=== PATIENT | female | born 1980 | race Caucasian/White ===

== ENCOUNTER → 2017-06-17 | Outpatient (CLI) | payer OTHER ==
[~2017-06-17] MED LIST: MTR600X PO; OXYC5TAB PO; PRENTAB26 PO
[2017-06-17 12:06] LABS: BASO % 0.3 %; BASO ABS # 0.02 K/uL (0-0.2); COMPLETE YES; EOS % 1.1 %; HEMATOCRIT 37.5 % (37-47); IG% 0.3 %; LYMPH % 22.8 %; LYMPH ABS # 1.71 K/uL (1.2-3.4); MEAN CELL VOLUME 92.8 fL (80-100); MEAN CORPUSCULAR HEMOGLOBIN 31.7 pg (25-34); MEAN CORPUSCULAR HGB CONC 34.1 g/dl (32-36); MEAN PLATELET VOLUME 10.5 fL (7.4-10.4); MONO % 5.2 %; NEUT % 70.3 %; PLATELET COUNT 231 K/uL (130-400); RED BLOOD COUNT 4.04 M/uL (4.2-5.4)
[2017-06-17 15:11] LABS: URINE APPEARANCE CLEAR (CLEAR); URINE BILIRUBIN NEG (NEG); URINE COLOR YELLOW; URINE NITRITE NEG (NEG); URINE PH 6.5 (4.5-7.5); URINE SPECIFIC GRAVITY 1.021 (1.000-1.030); UROBILINOGEN NEG (NEG)
[2017-06-17 15:12] LABS: MANUAL MICROSCOPIC REQUIRED? NO; REVIEW REQ? NO
[2017-06-19 22:59] LABS: CHLAMYDIA TRACH RNA*** NOT DETECTED (NOT DETECTED); GC (NEIS GONORRHOEAE)RNA** NOT DETECTED (NOT DETECTED)
== END | disposition home or self-care (01) ==
LOC: C.LAB1850 09:56
PROVIDERS: ATTEND Obstetrics & Gynecology
DX: O09.219 Supervision of pregnancy with history of pre-term labor, unspecified trimester (principal)

== ENCOUNTER → 2017-06-17 | Outpatient (CLI) | payer OTHER | END | disposition home or self-care (01) | LOC: C.PAPS 14:12 | PROVIDERS: ATTEND Obstetrics & Gynecology | DX: O09.521 Supervision of elderly multigravida, first trimester (principal); Z3A.00 Weeks of gestation of pregnancy not specified ==

== ENCOUNTER → 2017-07-15 | Outpatient (CLI) | payer OTHER ==
[2017-07-15 13:33] LABS: GTGD 50 Grams
[2017-07-16 15:32] LABS: AFP CONCENTRATION 16.7 NG/ML; AFP MULTIPLE OF MEDIAN 0.55; AFPTS GESTATIONAL AGE 15.3 WEEKS; AFPTS INSULIN DEP DIABETIC? NO; AFPTS MATERNAL WT 143 LBS; ALPHA-FETOPROTEIN RACE CAUCASIAN=W; HISTORY OF NTD NO; REPEAT SAMPLE? NO
== END | disposition home or self-care (01) ==
LOC: C.LAB1850 11:05
PROVIDERS: ATTEND Obstetrics & Gynecology
DX: O09.522 Supervision of elderly multigravida, second trimester (principal); Z3A.00 Weeks of gestation of pregnancy not specified

== ENCOUNTER → 2017-08-19 | Outpatient (CLI) | payer OTHER ==
[2017-08-19 15:07] LABS: URINE APPEARANCE CLEAR (CLEAR); URINE BILIRUBIN NEG (NEG); URINE COLOR YELLOW; URINE EPITHELIAL CELL AUTO >30 /lpf (0-5); URINE NITRITE NEG (NEG); URINE PH 5.5 (4.5-7.5); URINE SPECIFIC GRAVITY 1.015 (1.000-1.030); UROBILINOGEN NEG (NEG)
[2017-08-19 15:11] LABS: MANUAL MICROSCOPIC REQUIRED? NO; REVIEW REQ? NO
== END | disposition home or self-care (01) ==
LOC: C.LABSPEC 14:02
PROVIDERS: ATTEND Obstetrics & Gynecology
DX: O09.522 Supervision of elderly multigravida, second trimester (principal); Z3A.00 Weeks of gestation of pregnancy not specified

== ENCOUNTER → 2017-10-29 | Outpatient (CLI) | payer OTHER | END | disposition home or self-care (01) | LOC: C.LABSPEC 13:36 | PROVIDERS: ATTEND Obstetrics & Gynecology | DX: O09.523 Supervision of elderly multigravida, third trimester (principal) ==

== ENCOUNTER → 2017-11-12 | Outpatient (CLI) | payer OTHER ==
[2017-11-12 13:20] LABS: HEMATOCRIT 33.6 % (37-47); HEMOGLOBIN 11.5 g/dL (12.0-16.0)
== END | disposition home or self-care (01) ==
LOC: C.LAB1850 11:42
PROVIDERS: ATTEND Obstetrics & Gynecology
DX: O09.523 Supervision of elderly multigravida, third trimester (principal); Z29.13 Encounter for prophylactic Rho(D) immune globulin

== ENCOUNTER → 2017-12-10 | Outpatient (CLI) | payer OTHER | END | disposition home or self-care (01) | LOC: C.LABSPEC 14:10 | PROVIDERS: ATTEND Obstetrics & Gynecology | DX: O09.523 Supervision of elderly multigravida, third trimester (principal) ==

== ENCOUNTER 2017-12-22 20:35 | Outpatient (CLI) | payer OTHER ==
[~2017-12-22] VITALS: Ht 177.8 cm; Wt 70.5 kg
[2017-12-22 21:11] VITALS: Ht 177.8 cm; Wt 70.5 kg
[2017-12-22 21:30] LABS: BASO % 0.1 %; BASO ABS # 0.01 K/uL (0-0.2); EOS % 0.5 %; EOS ABS # 0.05 K/uL (0-0.5); HEMATOCRIT 30.1 % (37-47); HEMOGLOBIN 10.4 g/dL (12.0-16.0); IG# 0.05 K/uL (0.00-0.02); LYMPH ABS # 1.84 K/uL (1.2-3.4); MEAN CELL VOLUME 91.2 fL (80-100); MEAN CORPUSCULAR HEMOGLOBIN 31.5 pg (25-34); MEAN PLATELET VOLUME 10.3 fL (7.4-10.4); MONO % 4.8 %; MONO ABS # 0.46 K/uL (0.11-0.59); NEUT % 75.1 %; NEUT ABS # 7.27 K/uL (1.4-6.5); PLATELET COUNT 201 K/uL (130-400); WHITE BLOOD COUNT 9.68 K/uL (4.8-10.8)
[2017-12-22 21:50] LABS: INR 0.9 (0.9-1.1)
[2017-12-22 21:54] LABS: CREATININE 0.64 mg/dl (0.60-1.20); URIC ACID 2.8 mg/dl (2.6-7.2)
[2017-12-22 22:18] LABS: MEAN CORPUSCULAR HGB CONC 34.6 g/dl (32-36)
== END 2017-12-22 22:09 | disposition home or self-care (01) ==
LOC: C.LD 20:35 → C.OPB 20:35
PROVIDERS: ATTEND Obstetrics & Gynecology
DX: O26.893 Other specified pregnancy related conditions, third trimester (principal); O09.523 Supervision of elderly multigravida, third trimester; R10.11 Right upper quadrant pain; R11.0 Nausea; R51 Headache; Z3A.38 38 weeks gestation of pregnancy

== ENCOUNTER 2017-12-30 05:49 | Inpatient (IN) | payer OTHER ==
[2017-12-27 11:20] VITALS: BMI 22.0
[2017-12-27 12:01] LABS: BASO % 0.3 %; BASO ABS # 0.02 K/uL (0-0.2); EOS % 0.6 %; EOS ABS # 0.05 K/uL (0-0.5); HEMATOCRIT 30.9 % (37-47); HEMOGLOBIN 10.5 g/dL (12.0-16.0); IG# 0.04 K/uL (0.00-0.02); LYMPH % 19.5 %; LYMPH ABS # 1.51 K/uL (1.2-3.4); MEAN CELL VOLUME 91.2 fL (80-100); MEAN PLATELET VOLUME 10.7 fL (7.4-10.4); MONO % 4.8 %; MONO ABS # 0.37 K/uL (0.11-0.59); NEUT % 74.3 %; NEUT ABS # 5.76 K/uL (1.4-6.5); PLATELET COUNT 177 K/uL (130-400); RED CELL DISTRIBUTION WIDTH CV 12.9 % (11.5-14.5); RED CELL DISTRIBUTION WIDTH SD 42.6 fL (36.4-46.3); WHITE BLOOD COUNT 7.75 K/uL (4.8-10.8)
--- NOTE | 2017-12-27 13:31 | HISTORY & PHYSICAL EXAMINATION ---
DATE OF ADMISSION: 12/30/2017 CHIEF COMPLAINT: Planned section. HISTORY OF PRESENT ILLNESS: A 37-year-old 6, para 3-1-1-4 at 39 weeks estimated gestational age for planned section on Saturday for history of prior section x4. The patient also desires tubal ligation as she is done childbearing. She denies any vaginal bleeding, leaking, contractions. She reports good movement. COURSE: 1. Prior section x4. 2. Rh negative. 3. History of HELLP syndrome in prior . 4. History of delivery. LABORATORIES: Rh negative, rubella immune, GBS negative. OBSTETRICAL HISTORY: x4, the first in 2002 at 33 weeks with HELLP syndrome, one 16-week demise with D&E. GYNECOLOGIC HISTORY: No abnormal Pap smears, no STDs. PAST MEDICAL HISTORY: None. PAST SURGICAL HISTORY: x4, D&E, tonsillectomy, and wisdom teeth extraction. ALLERGIES: None. MEDICATIONS: vitamins. SOCIAL HISTORY: No tobacco, alcohol or street drug use. FAMILY HISTORY: Noncontributory. REVIEW OF SYSTEMS: All negative 10 system review except for history of anxiety and history of acid reflux. PHYSICAL EXAMINATION: VITAL SIGNS: Height 5 feet 10 inches, weight 162 pounds, blood pressure 110/70. HEART: Regular rate and rhythm. LUNGS: Clear to auscultation bilaterally. ABDOMEN: Soft, gravid, nontender. Fundal height 36 cm. heart tones 130 beats per minute. EXTREMITIES: No edema. LABORATORY DATA: Urine negative for protein and sugar. ASSESSMENT: 1. A 39+ weeks on the day of her admission. 2. Prior section x4, desires repeat section. 3. Desires sterilization. 4. Rh negative. PLAN: The patient will be admitted on Saturday for planned section. She is also desiring of tubal sterilization as she is done childbearing. She is aware of risks, alternatives and complications of both procedures and desires to proceed. She is aware specifically of bleeding, infection, risk of anesthesia, injury to surrounding structures, both maternal and as well as failure of tubal ligation resulting in , ectopic and regret rate. She desires to proceed and a consent form is signed. She will have preadmission testing. She will be nothing to eat or drink after midnight on Saturday night. She will arrive for her planned section on Saturday. AAKASH
[2017-12-30] VITALS (15 sets, daily range): BP systolic 103–111; BP diastolic 61–67; PULSE 54–63; TEMP 36.3–37; O2SAT 98–100; Ht 177.8 cm; Wt 71.4 kg
[~2017-12-30] VITALS: Ht 177.8 cm; Wt 71.4 kg
[~2017-12-30 05:49] MED LIST changes: +LACTATED RINGER'S 1000ML 1,000 ML IV SCH; -MTR600X PO; -OXYC5TAB PO
[2017-12-30] MEDS ORDERED: LACTATED RINGER'S 1000ML 1,000 ML IV ONE (05:51)
[2017-12-30] MEDS ORDERED: CEFAZOLIN IV 2,000 MG in SYRINGE 0 ML IV SCH (06:00)
[2017-12-30] MEDS ORDERED: CITRIC ACID/SODIUM CITRATE 15 ML UDC PO SCH (06:00)
[2017-12-30 06:48] LABS: HEMATOCRIT 32.7 % (37-47); HEMOGLOBIN 10.9 g/dL (12.0-16.0); MEAN CELL VOLUME 90.6 fL (80-100); MEAN CORPUSCULAR HEMOGLOBIN 30.2 pg (25-34); MEAN CORPUSCULAR HGB CONC 33.3 g/dl (32-36); MEAN PLATELET VOLUME 10.5 fL (7.4-10.4); PLATELET COUNT 203 K/uL (130-400); RED CELL DISTRIBUTION WIDTH CV 13.1 % (11.5-14.5); RED CELL DISTRIBUTION WIDTH SD 43.1 fL (36.4-46.3); WHITE BLOOD COUNT 6.73 K/uL (4.8-10.8)
[2017-12-30 06:49] LABS: BASO % 0.4 %; BASO ABS # 0.03 K/uL (0-0.2); EOS ABS # 0.07 K/uL (0-0.5); IG# 0.05 K/uL (0.00-0.02); LYMPH ABS # 1.68 K/uL (1.2-3.4); MONO % 7.9 %; MONO ABS # 0.53 K/uL (0.11-0.59); NEUT ABS # 4.37 K/uL (1.4-6.5)
[2017-12-30] MEDS ORDERED: ONDANSETRON INJ 2 MG/ML 2 ML VIAL IV PRN ×2 (07:00→09:15)
[2017-12-30] MEDS ORDERED: ATROPINE SULFATE 0.1 MG/ML 5ML SYR IV PRN (07:00)
[2017-12-30] MEDS ORDERED: EpHEDrine SULFATE INJ 50 MG/ML AMP IV PRN ×2 (07:00→09:15)
[2017-12-30] MEDS ORDERED: FENTANYL CITRATE INJ 50 MCG/1 ML 2 ML VIAL IV PRN (07:00)
[2017-12-30] MEDS ORDERED: MoRPHine SULFATE PF 1 MG/ML 10 ML AMP/VIAL ONE (07:03)
[2017-12-30] MEDS ORDERED: OXYTOCIN INJ 10 UNITS/ML VIAL ONE (07:03)
[2017-12-30] MEDS ORDERED: FENTANYL CITRATE INJ 50 MCG/1 ML 2 ML VIAL ONE (07:03)
--- NOTE | 2017-12-30 07:18 | History & Physical Bridge Note ---
H&P Re-Evaluation Bridge Note: I have examined the patient, reviewed the History & Physical and in the interval since the performance of the History & Physical I have noted the following changes of clinical significance: No changes noted
[2017-12-30] MEDS ORDERED: PHENYLEPHRINE 100MCG/ML 5ML SYR ONE (08:03)
[2017-12-30] MEDS ORDERED: BENZOCAINE 20% AER SPR 82.5 GM CAN EXT PRN (08:45)
[2017-12-30] MEDS ORDERED: DIPHTHERIA/TETANUS/PERTUSSIS 0.5 ML SYR/VIAL IM. ONE (08:45)
[2017-12-30] MEDS ORDERED: LANOLIN OINT EXT PRN (08:45)
[2017-12-30] MEDS ORDERED: SUPERCREAM 0.870 % 15GM JAR EXT PRN (08:45)
[2017-12-30] MEDS ORDERED: HYDROCORTISONE ACETATE 25 MG SUPP PR PRN (08:45)
[2017-12-30] MEDS ORDERED: NALOXONE HCL INJ 0.08 MG in SYRINGE 1.8 ML IV PRN (09:04)
[2017-12-30] MEDS ORDERED: SODIUM CHLORIDE 0.9% 1000ML 1,000 ML IV PRN (09:04)
[2017-12-30] MEDS ORDERED: LACTATED RINGER'S 1000ML 500 ML IV PRN (09:04)
[2017-12-30] MEDS ORDERED: NALOXONE HCL INJ 1 MG in SODIUM CHLORIDE 0.9% 1000ML 1,000 ML IV PRN (09:04)
--- NOTE | 2017-12-30 09:05 | [facility] Post Operative Brief Note ---
Immediate Operative Summary Operative Date Dec 30, 2017. Pre-Operative Diagnosis Intrauterine ;Prior Caesarean Section times four;Desires Sterilization Post-Operative Diagnosis Same Procedure(s) Performed Repeat Caesarean Section; Delivery of a live male child at 0807 Bilateral Tubal Ligation Surgeon Dr. George Medical Equipment Technician Surgeon(s) Dr. Soria, Dr. Fairchild Estimated Blood Loss 650 cc Findings Viable male. Normal appearing uterus, fallopian tubes and ovaries. Specimens cord blood placenta-hold portions of right and left fallopian tubes Drains [place] clear urine Complication(s) None Disposition L&D
[2017-12-30] MEDS ORDERED: KETOROLAC TROMETHAMINE 30 MG/ML VIAL IV. PRN (09:15)
[2017-12-30] MEDS ORDERED: MEPERIDINE HCL 25 MG/ML CARP IV PRN (09:15)
[2017-12-30] MEDS ORDERED: NALBUPHINE HCL INJ 10 MG/ML AMP IV PRN (09:15)
[2017-12-30] MEDS ORDERED: MoRPHine SULFATE PF 1 MG/ML 10 ML AMP/VIAL EPI PRN (09:15)
[2017-12-30] MEDS ORDERED: NALOXONE HCL 0.4 MG/1 ML VIAL/CARP IV PRN (09:15)
[2017-12-30] MEDS ORDERED: DiphenhydrAMINE HCL 50 MG/ML VIAL IV PRN (09:15)
[2017-12-30] MEDS ORDERED: NO NARCOTICS OR SEDATIVES SCH (09:15)
--- NOTE | 2017-12-30 09:25 | OPERATIVE REPORT ---
DATE OF OPERATION: 12/30/2017 PREOPERATIVE DIAGNOSES: 1. A 39-week intrauterine . 2. Prior section x4. 3. Desires sterilization. POSTOPERATIVE DIAGNOSES: Same. PROCEDURES: 1. Repeat low transverse section. 2. Modified [place] bilateral tubal ligation. SURGEON: Dr. Leilani George. ELECTRON TUBE ASSEMBLER: Dr. Anam Soria. IV FLUIDS: 2500 mL. ESTIMATED BLOOD LOSS: 50 mL. URINE OUTPUT: 200 mL. ANESTHESIA: Spinal with Duramorph. FINDINGS: Viable male infant, Apgars 8 and 9. Normal uterus, tubes and ovaries bilaterally. INDICATION: A 37-year-old 6, para 3-1-1-4 at 39+ weeks estimated gestational age for planned repeat section with a history of prior section x4. The patient also desires sterilization. She is aware of her risks, alternatives and complications and desires to proceed. DESCRIPTION OF PROCEDURE: The patient was taken to the operating room and identified. After adequate spinal anesthesia was placed in the supine position with a leftward tilt and prepped and draped in the usual sterile fashion. The knife was used to create a Pfannenstiel skin incision that was carried down to underlying layer of fascia. The fascia was nicked in the midline and this opening was extended laterally using Bill scissors. Racheal clamps were used to elevate the superior edge of the fascia. During this dissection, the peritoneal cavity was entered into. This opening was then extended and the opening was stretched. The bladder blade was placed. The vesicouterine peritoneum was grasped with a Kristine clamp and elevated. It was opened up sharply using Metzenbaum scissors and extended laterally. The bladder flap was created digitally. The knife was then used to create a hysterotomy that was then stretched. The welding machine operator helper arc's hand was placed through the hysterotomy and the bladder blade was removed. With fundal pressure, the cephalic was delivered. The nose and mouth were bulb suctioned. The shoulders and body were delivered with ease. The infant was vigorous and crying at . The cord was clamped and cut and the infant was handed off to the awaiting pediatricians. Cord blood was obtained. The placenta was manually expressed. The uterus was exteriorized and cleared of all clots and debris. The hysterotomy was closed in running locking fashion using 0 Vicryl. Individual imbricating [id number] sutures of 0 vicryl were placed across the hysterotomy for excellent hemostasis. The attention was then turned to the right fallopian tube, which was identified to its fimbriated end and a knuckle of tube was elevated using a [place] clamp. The 2-0 plain suture was then used to doubly ligate the fallopian tube and then it was transected. The stumps were cauterized. Attention was then turned to the left fallopian tube, which was also identified to its fimbriated end and then elevated, doubly ligated and transected in a similar fashion. Its stumps were also cauterized. These bleeding sites were hemostatic. The uterus was returned to the abdomen after the pelvis was irrigated. The gutters were cleared of all clots and debris. There was a small bleeding vessel at the right tubal ligation site that was elevated with a hemostat and tied for excellent hemostasis. The hysterotomy was reinspected and noted to be hemostatic. The fascia was then closed in a running fashion using 0 Vicryl. The subcutaneous fat was copiously irrigated and then reapproximated using 2-0 chromic. The skin was then closed in a subcuticular fashion using 4-0 Vicryl. The Steri-Strips were applied. A pressure dressing was applied. The patient was transferred to the recovery room in stable condition. All sponge, lap and needle counts were correct x2. I attest to the content of the Intraoperative Record and any orders documented therein. Any exceptions are noted below. AAKASH
--- NOTE | 2017-12-30 09:51 | Anesthesiology Progress Note ---
Anesthesia Post Op Note Date & Time Dec 30, 2017 at 09:51 Notes Mental Status: alert / awake / arousable, participated in evaluation Pt Amnestic to Procedure: Yes Nausea / Vomiting: adequately controlled Pain: adequately controlled Airway Patency, RR, SpO2: stable & adequate BP & HR: stable & adequate Hydration State: stable & adequate Neuraxial Anesthesia: was administered, sensory block is resolving Anesthetic Complications: no major complications apparent
[2017-12-30] MEDS: OXYTOCIN INJ 20 UNITS in LACTATED RINGER'S 1000ML 1,000 ML IV SCH ×2 (12:43→20:51)
[2017-12-30] MEDS: KETOROLAC TROMETHAMINE 30 MG/ML VIAL IV. PRN ×2 (12:50→20:03)
[2017-12-31] VITALS (9 sets, daily range): BP systolic 101–108; BP diastolic 63–69; PULSE 60–68; TEMP 36.7–37.2; O2SAT 97–100
[2017-12-31] MEDS ORDERED: DiphenhydrAMINE HCL 50 MG/ML VIAL IV PRN (01:45)
[2017-12-31] MEDS ORDERED: ONDANSETRON INJ 2 MG/ML 2 ML VIAL IV PRN (01:45)
[2017-12-31] MEDS ORDERED: DC INTRASPINAL MORPHINE ONE (01:45)
[2017-12-31] MEDS ORDERED: KETOROLAC TROMETHAMINE 30 MG/ML VIAL IV. PRN (01:45)
[2017-12-31 06:31] LABS: BASO % 0.1 %; BASO ABS # 0.01 K/uL (0-0.2); EOS % 0.6 %; EOS ABS # 0.07 K/uL (0-0.5); HEMATOCRIT 31.7 % (37-47); HEMOGLOBIN 10.7 g/dL (12.0-16.0); IG# 0.02 K/uL (0.00-0.02); LYMPH % 12.8 %; LYMPH ABS # 1.38 K/uL (1.2-3.4); MEAN CELL VOLUME 91.6 fL (80-100); MEAN CORPUSCULAR HEMOGLOBIN 30.9 pg (25-34); MEAN CORPUSCULAR HGB CONC 33.8 g/dl (32-36); MEAN PLATELET VOLUME 10.7 fL (7.4-10.4); MONO % 4.7 %; MONO ABS # 0.51 K/uL (0.11-0.59); NEUT % 81.6 %; PLATELET COUNT 174 K/uL (130-400); RED CELL DISTRIBUTION WIDTH CV 13.1 % (11.5-14.5); RED CELL DISTRIBUTION WIDTH SD 43.5 fL (36.4-46.3); WHITE BLOOD COUNT 10.79 K/uL (4.8-10.8)
--- NOTE | 2017-12-31 06:45 | OB/GYN Progress Note ---
[facility] Progress Note Date of Service Dec 31, 2017. Subjective conversation w/ patient, physical exam, chart review, lab review Ambulation: ambulating normally Voiding: no voiding problems (price removed ) Passing Gas: Yes Diet Tolerance: Regular Diet Lochia: Moderate Feeding Type: Breast Feeding Pain: well controlled Review of Systems Constitutional: No fever, No chills Respiratory: No cough, No wheezing Cardiac: No chest pain Abdomen: + nausea, + vomiting, No pain Female : No dysuria Objective Vital Signs Date Time Temp Pulse Resp B/P (MAP) Pulse Ox O2 Delivery O2 Flow Rate FiO2 12/31/17 03:10 36.9 68 20 108/69 12/31/17 02:00 18 98 12/31/17 01:00 18 98 12/31/17 00:00 18 100 12/30/17 23:15 36.9 63 18 107/62 12/30/17 23:15 100 Room Air 12/30/17 23:00 18 98 12/30/17 22:00 18 100 12/30/17 21:00 18 99 12/30/17 20:00 36.9 60 20 111/67 12/30/17 20:00 20 99 12/30/17 19:00 16 98 12/30/17 18:00 16 100 12/30/17 17:00 20 98 12/30/17 16:00 20 100 12/30/17 15:50 Room Air 12/30/17 15:50 36.4 54 20 106/67 (80) 99 Room Air 12/30/17 15:00 20 99 12/30/17 14:05 16 100 12/30/17 13:20 37.0 61 16 104/61 (75) 100 Room Air 12/30/17 13:10 16 99 12/30/17 12:20 36.3 56 16 103/65 (78) 100 Room Air 12/30/17 12:20 100 Room Air 12/30/17 12:20 16 100 Physical Exam General Appearance: WELL-APPEARING, WD/WN, NO APPARENT DISTRESS Respiratory/Chest: lungs clear, no respiratory distress Cardiovascular: regular rate, rhythm, no murmur Abdomen: normal bowel sounds Fundus: Firm, Relation to Umbilicus (1 below) Extremities: non-tender, normal inspection, no pedal edema Laboratory Results Last 24 Hours Test 12/31/17 06:15 White Blood Count 10.79 K/uL Red Blood Count 3.46 M/uL Hemoglobin 10.7 g/dL Hematocrit 31.7 % Mean Corpuscular Volume 91.6 fL Mean Corpuscular Hemoglobin 30.9 pg Mean Corpuscular Hemoglobin Concent 33.8 g/dl Platelet Count 174 K/uL Mean Platelet Volume 10.7 fL Neutrophils (%) (Auto) 81.6 % Lymphocytes (%) (Auto) 12.8 % Monocytes (%) (Auto) 4.7 % Eosinophils (%) (Auto) 0.6 % Basophils (%) (Auto) 0.1 % Neutrophils # (Auto) 8.80 K/uL Lymphocytes # (Auto) 1.38 K/uL Monocytes # (Auto) 0.51 K/uL Eosinophils # (Auto) 0.07 K/uL Basophils # (Auto) 0.01 K/uL RDW Standard Deviation 43.5 fL RDW Coefficient of Variation 13.1 % Immature Granulocyte % (Auto) 0.2 % Immature Granulocyte # (Auto) 0.02 K/uL Medications Current Inpatient Medications Medications (Trade) Dose Ordered Sig/Bryant Route Start Time Stop Time Status Last Admin Dose Admin Ketorolac Tromethamine (Toradol Inj) 30 mg Q6H PRN IV. 12/31/17 01:45 01/05/18 01:44 12/31/17 03:12 30 MG Oxycodone/ Acetaminophen (Percocet 5-325mg Tab) 1 tab Q4H PRN PO 12/31/17 01:45 01/14/18 01:44 Oxycodone/ Acetaminophen (Percocet 5-325mg Tab) 2 tab Q4H PRN PO 12/31/17 01:45 01/14/18 01:44 Ibuprofen (Motrin Tab) 600 mg Q4H PRN PO 12/30/17 08:45 01/29/18 08:44 Ondansetron HCl (Zofran Inj) 4 mg Q4H PRN IV 12/31/17 01:45 01/30/18 01:44 Magnesium Hydroxide (Milk Of Magnesia Susp) 30 ml HS PO 12/31/17 22:00 01/30/18 21:59 Ferrous Sulfate (Feosol Tab) 325 mg DAILY PO 12/31/17 08:00 01/30/18 07:59 Cocaine HCl (Supercream 0.870% Cr) BID PRN EXT 12/30/17 08:45 01/13/18 08:44 Lanolin (Lanolin Oint) PRN PRN EXT 12/30/17 08:45 01/29/18 08:44 Hydrocortisone Acetate (Anusol Hc Supp) 25 mg BID PRN [place] 12/30/17 08:45 01/29/18 08:44 Benzocaine (Dermoplast Aero Spr) 1 appln PRN PRN EXT 12/30/17 08:45 01/29/18 08:44 Diphenhydramine HCl (Benadryl Cap) 25 mg QID PRN PO 12/31/17 01:45 01/30/18 01:44 Diphenhydramine HCl (Benadryl Inj) 25 mg QID PRN IV 12/31/17 01:45 01/30/18 01:44 Senna (Senokot Tab) 17.2 mg HS PO 12/31/17 22:00 01/30/18 21:59 Assessment and Plan Post-Op Day Number: 1 Continue Routine Care: 37 female . Post op day 1. Patient is B-/GBS-/RI. Reviewed vitals WNL. Hgb is stable. No signs or sx of anemia. Patient is doing well this morning. Price was removed , tolerating well, adequate output. Patient did experience n/v upon standing yesterday afternoon. Likely related to anesthesia. Will continue to monitor today. Plan: 1. Post-op day 1; cont pp care--ambulate, support breast feeding, monitor lochia , control pain. Remove incision dressing. Ifeanyi Fairchild PGY 1 Resident Physician Supervision Note: I was present with Dr. Fairchild during the history and exam. I discussed the case with the resident and agree with the findings and plan as documented in the note. Any exceptions or clarifications are listed here: Doing well. Routine care. Hgb noted. Already voiding. Po pain meds and plan ambulation. + Flatus, eating regular diet. Incision c/d/i with steris and dried blood. Documented By: Leilani George
[2017-12-31] MEDS: FERROUS SULFATE 325 MG TAB PO SCH (07:58)
[2017-12-31] MEDS: OXYCODONE/ACETAMINOPHEN 5-325 TAB PO PRN ×3 (12:34→20:46)
[2017-12-31] MEDS: IBUPROFEN 600 MG TAB PO PRN ×2 (12:34→18:42)
[2017-12-31] MEDS ORDERED: MAGNESIUM HYDROXIDE SUSP 30 ML UDC PO SCH (22:00)
[2017-12-31] MEDS ORDERED: SENNA 8.6 MG TAB PO SCH (22:00)
[2018-01-01] MEDS: IBUPROFEN 600 MG TAB PO PRN ×3 (01:02→12:12)
[2018-01-01] MEDS: OXYCODONE/ACETAMINOPHEN 5-325 TAB PO PRN ×3 (01:02→12:12)
[2018-01-01] MEDS ORDERED: OXYC-57 PO (06:44)
--- NOTE | 2018-01-01 06:52 | Progress Note ---
Subjective Jan 01, 2018. Subjective conversation w/ patient, physical exam, chart review, lab review Ambulation: ambulating normally Voiding: no voiding problems (price removed ) Passing Gas: Yes Diet Tolerance: Regular Diet Lochia: Small Feeding Type: Breast Feeding Pain: well controlled Review of Systems Constitutional: No fever, No chills Respiratory: No cough, No shortness of breath Cardiac: No chest pain Abdomen: No pain, No nausea, No vomiting Female : No dysuria Objective Vital Signs Date Time Temp Pulse Resp B/P (MAP) Pulse Ox O2 Delivery O2 Flow Rate FiO2 12/31/17 23:30 36.7 60 16 106/66 12/31/17 23:30 Room Air 12/31/17 15:25 99 Room Air 12/31/17 15:25 37.2 63 20 104/63 12/31/17 08:24 97 Room Air 12/31/17 07:50 97 Room Air 12/31/17 07:24 36.8 64 18 101/65 Physical Exam General Appearance: WELL-APPEARING, WD/WN, NO APPARENT DISTRESS Respiratory/Chest: lungs clear, normal breath sounds Cardiovascular: regular rate, rhythm Abdomen: normal bowel sounds, non tender, soft Fundus: Firm, Relation to Umbilicus (below umbillicus ) Extremities: non-tender, normal inspection, no pedal edema Laboratory Results Last 24 Hours Test 01/01/18 06:00 Medications Current Inpatient Medications Medications (Trade) Dose Ordered Sig/Bryant Route Start Time Stop Time Status Last Admin Dose Admin Ketorolac Tromethamine (Toradol Inj) 30 mg Q6H PRN IV. 12/31/17 01:45 01/05/18 01:44 12/31/17 03:12 30 MG Oxycodone/ Acetaminophen (Percocet 5-325mg Tab) 1 tab Q4H PRN PO 12/31/17 01:45 01/14/18 01:44 12/31/17 20:46 1 TAB Oxycodone/ Acetaminophen (Percocet 5-325mg Tab) 2 tab Q4H PRN PO 12/31/17 01:45 01/14/18 01:44 01/01/18 05:46 2 TAB Ibuprofen (Motrin Tab) 600 mg Q4H PRN PO 12/30/17 08:45 01/29/18 08:44 01/01/18 05:46 600 MG Ondansetron HCl (Zofran Inj) 4 mg Q4H PRN IV 12/31/17 01:45 01/30/18 01:44 Magnesium Hydroxide (Milk Of Magnesia Susp) 30 ml HS PO 12/31/17 22:00 01/30/18 21:59 12/31/17 22:27 30 ML Ferrous Sulfate (Feosol Tab) 325 mg DAILY PO 12/31/17 08:00 01/30/18 07:59 12/31/17 07:58 325 MG Cocaine HCl (Supercream 0.870% Cr) BID PRN EXT 12/30/17 08:45 01/13/18 08:44 Lanolin (Lanolin Oint) PRN PRN EXT 12/30/17 08:45 01/29/18 08:44 Hydrocortisone Acetate (Anusol Hc Supp) 25 mg BID PRN [place] 12/30/17 08:45 01/29/18 08:44 Benzocaine (Dermoplast Aero Spr) 1 appln PRN PRN EXT 12/30/17 08:45 01/29/18 08:44 Diphenhydramine HCl (Benadryl Cap) 25 mg QID PRN PO 12/31/17 01:45 01/30/18 01:44 Diphenhydramine HCl (Benadryl Inj) 25 mg QID PRN IV 12/31/17 01:45 01/30/18 01:44 Senna (Senokot Tab) 17.2 mg HS PO 12/31/17 22:00 01/30/18 21:59 12/31/17 22:27 17.2 MG Assessment and Plan Post-Op Day#: 2 Continue Routine Care: 37 female . Post op day 2. Patient is B-/GBS-/RI. Reviewed vitals WNL. Hgb is stable. No signs or sx of anemia. Patient is doing well this morning. Patient doing well. Discussed discharge instructions with the patient. Plan: 1. Post-op day 2; cont pp care--ambulate, support breast feeding, monitor lochia , control pain. 2. Discussed discharge instructions with the patient. Benny Fairchild PGY 1 Resident Physician Supervision Note: I interviewed and examined the patient. Discussed with Dr. Devorah and agree with findings and plan as documented in the note. Any exceptions or clarifications are listed here: POD#2 doing well. Would like to go home today. [place] PDMP checked. Discharge instructions reviewed. Documented By: Alice Cordova
--- NOTE | 2018-01-01 06:56 | Discharge Instructions ---
Discharge Instructions Date of Service Jan 01, 2018. Admission Reason for Admission: Multiple Delivery All By Section, Desires Discharge Discharge Diagnosis / Problem: recovery from csection Discharge Goals Goal(s): Routine recovery after Medications Continue Dispensed Medications: supercream, dermaplast, tucks, lansinoh Activity Recommendations Activity Limitations: per Instructions/Follow-up section . Instructions / Follow-Up Instructions / Follow-Up ACTIVITY RECOMMENDATIONS: * Gradual return to full activity over the next 2-3 weeks. * No lifting - nothing heavier than baby over the next 2-3 weeks. * Do not engage in vigorous exercise, sexual activity or sports until cleared by your physician. * Do not drive or operate any motorized equipment until cleared by your physician. * You may shower/bathe daily. MEDICATIONS: For discomfort or pain, you may use Acetaminophen (Tylenol), Ibuprofen (Advil), or Naproxen (Aleve) following the package directions. For constipation you may use Colace following the package directions. BREAST CARE: If you are not breast feeding: * Wear a supportive bra 24 hours a day for one to two weeks. * Avoid stimulating your breasts and nipples as much as possible during the first few weeks after delivery. * When taking a shower, have the warm water hit your back, not breasts. * When your breasts feel full, apply ice packs. Usually three to four times a day helps ease the discomfort. * Take a mild pain medication (Tylenol / Motrin) when you are uncomfortable. If breast feeding: * Use breast milk to lubricate nipples. Lansinoh cream may be used for sore nipples. You do not need to remove cream prior to breast feeding. If using a different brand of cream, check the label for directions regarding removal of cream prior to nursing. * Wear a supportive bra. * If having problems with breasts or breast feeding, call a transportation sales consultant or your health care provider. SPECIAL CARE INSTRUCTIONS: When you are discharged from the hospital, it is important for you to follow the instructions listed below: * During the first week at home, you should be able to care for yourself and your baby. In addition, the usual light household activities are encouraged. * Limit your activities to the way you feel. Do not try to clean the house or move furniture. Be sensible. * If you actively engage in sports and have done so up until the time of your delivery, you may resume these activities as soon as you feel able. This may take up to one month or even longer. Use good judgment. * Continue to take your vitamins for at least six weeks after the of your baby. * Your diet need not be limited unless you were on a special diet before your delivery. Breast-feeding mothers need around 2500 calories per day and at least 64-80 ounces of fluid per day (8 to 10 glasses). * You should eat foods from the four major food groups. Crash diets or fad diets are to be avoided. Eating lean meats, fresh fruits and vegetables, low-fat dairy products, high fiber foods and a regular exercise program, will help you get back to your pre- weight without putting your health at risk. * Constipation is sometimes a problem after delivery. Take a mild laxative as needed. If breast feeding, Milk of Magnesia is acceptable to use. You may use a suppository or Fleets enema. * A daily shower or tub bath is suggested. Wash incision daily with warm soapy water and pat dry. It doesn't need to be covered unless drainage is present. * A bloody vaginal discharge will usually continue until around four weeks . A small amount of bleeding may continue for as long as six weeks. Vaginal discharge changes from the bright red bleeding after delivery to pink then brownish and finally yellowish-pink before becoming white and disappearing. * Bleeding may increase with activity. Your first period may come in 4-8 weeks. If you are breast feeding, your period may be delayed even longer. * [place] (sex) can begin whenever both you and your partner feel comfortable and do not have any form of genital infection. It is recommended that you wait at least six weeks for internal and external healing to occur. If you have questions, please talk to your health care practitioner. A condom should be used to prevent infection and . * Foreplay, gentle intercourse and lubrication is very important the first several times to prevent pain. A water-based lubricant such as K-Y jelly or Astroglide may be used. * If you have RH negative blood and your baby is RH positive, you will receive RHOGAM by injection prior to discharge. The nurse will give you a card to keep with you that has the date and place that you received RHOGAM after delivery. * During your care, you had a Rubella screen done to check for the presence of rubella antibodies in your blood. If your test was negative, you will receive a Rubella vaccine prior to discharge. This vaccine may cause a fever, soreness at the injection site and flu-like symptoms. If these symptoms persist, notify your health care practitioner. is not advised for one month after a Rubella vaccine. * Verbalizes understanding of car seat law as reviewed with patient nursing. * Car Seat hand-out given and reviewed with patient by nursing. * Shaken baby information reviewed with patient by nursing. Call you doctor if: * Heavy bleeding (saturating several pads an hour) or passing clots the size of your fist. * A fever >101 degrees F (38.3 degrees C) on two occasions four hours apart and /or chills. * Unusual pain in the pelvic or vaginal areas. * Call the doctor for any increased redness, drainage or swelling around the incision and any pain unrelieved by prescribed pain medication. * "Baby Blues" lasting longer than two weeks. If you have any questions or concerns, call your health care practitioner at . FOLLOW UP VISIT: * Please call the office at to schedule a 6 week examination. It is important you keep this appointment. It is important for you to make arrangements for either yearly or twice yearly check-ups thereafter. Current Hospital Diet Patient's current hospital diet: Regular OB Diet Discharge Diet Recommended Diet: Regular Diet, Regular OB Diet Procedures Procedures Performed: Repeat Caesarean Section; Delivery of a live male child at 0807 Bilateral Tubal Ligation Pending Studies Studies pending at discharge: no Medical Emergencies . Who to Call and When: Medical Emergencies: If at any time you feel your situation is an emergency, please call [phone] immediately. . Non-Emergent Contact Non-Emergency issues call your: Primary Care Provider, Primary Grade Teacher . . "Provider Documentation" section prepared by Jersey Fairchild. .
[2018-01-01 07:16] LABS: HEMATOCRIT 30.1 % (37-47); HEMOGLOBIN 9.8 g/dL (12.0-16.0)
[2018-01-01 07:30] VITALS: BP 117/73; PULSE 63; TEMP 36.7; O2SAT 99
[2018-01-01] MEDS: FERROUS SULFATE 325 MG TAB PO SCH (08:00)
[2018-01-01 14:10] VITALS: BP_DIAS 73; PULSE 63; TEMP 36.7
== END 2018-01-01 14:10 | disposition home or self-care (01) | DRG 766 ==
LOC: C.LD 05:49 → EDSTATUS 07:30 → C.OBG 12:19
PROVIDERS: ADMIT Obstetrics & Gynecology; ATTEND Obstetrics & Gynecology
PROC: 10D00Z1 Extraction of Products of Conception, Low, Open Approach (ICD-10-PCS; principal; 2017-12-30 07:30)
PROC: 0U570ZZ Destruction of Bilateral Fallopian Tubes, Open Approach (ICD-10-PCS; principal; 2017-12-30 07:30)
DX: O34.219 Maternal care for unspecified type scar from previous cesarean delivery (principal); O09.523 Supervision of elderly multigravida, third trimester; Z37.0 Single live birth; Z30.2 Encounter for sterilization; Z3A.39 39 weeks gestation of pregnancy